=== PATIENT | female | born 1980 | race Caucasian/White ===

== ENCOUNTER 2020-02-01 18:48 | Emergency (ER) | payer OTHER, MEDICAID ==
[~2020-02-01] VITALS: Ht 160 cm; Wt 68.2 kg
[~2020-02-01 18:48] MED LIST: ALBU8HFA PO; AMIT10TA6 PO; BUSP5TAB3 PO; DEXL60CA3 PO; FLO110IN IH; HYDR-4384 PO; VENL150C58 PO; VENL37.589 PO
[2020-02-01] MEDS ORDERED: HYDROcodone/acetaminophen 10/325mg tab PO ONE (19:00)
[2020-02-01 19:26] VITALS: BP 139/84
[2020-02-01] MEDS ORDERED: HYDR-4353 PO (19:36)
== END 2020-02-01 19:40 | disposition home or self-care (01) ==
LOC: ER 18:48
DX: S93.602A Unspecified sprain of left foot, initial encounter (principal); J45.909 Unspecified asthma, uncomplicated; G89.29 Other chronic pain; Z90.49 Acquired absence of other specified parts of digestive tract; Z98.51 Tubal ligation status; Z98.890 Other specified postprocedural states; Z79.899 Other long term (current) drug therapy; W18.42XA Slipping, tripping and stumbling without falling due to stepping into hole or opening, initial encounter; Y93.89 Activity, other specified; Y92.89 Other specified places as the place of occurrence of the external cause; Y99.8 Other external cause status
CPT/HCPCS: 73630; 99283